=== PATIENT | male | born 1940 | race Caucasian/White ===

== ENCOUNTER 2017-03-05 17:40 | Inpatient (IN) | payer OTHER ==
[~2017-03-05] VITALS: Ht 193 cm; Wt 75.8 kg
[~2017-03-05 17:40] MED LIST: CARVEDILOL12.5 MG PO; CARVEDILOL25 MG PO; CARVEDILOL6.25 MG PO; COREG25 M1 PO; CRESTOR40 MG PO; ELIQUIS5 MG PO; FISH OIL300 MG PO; FUROSEMIDE40 MG PO; K-DUR10 MEQ PO; KLOR-CON 1010 ME1 PO; LIPITOR80 MG PO; LISINOPRIL10 MG PO; LISINOPRIL5 MG PO; LOW DOSE ASPIRI81 M1 PO; MAGNESIUM250 MG PO; MICROZIDE12.5 M1 PO; PRINIVIL5 MG PO; QUINAGLUTE324 MG PO; SPIRONOLACTONE25 MG PO; ZESTORETIC 20-1 EAC2 PO; ZESTORETIC,P1 TABLE2 PO
[2017-03-05 18:24] LABS: HEMATOCRIT 38.8 % (38.0-50.0); MCH 28.5 PG (29.0-34.0); MCHC 33.2 G/DL (30.0-36.0); MCV 85.8 FL (86-99); PLATELET COUNT 270 K/uL (156-360); RBC DIS.WIDTH-CV 14.5 % (11.8-14.6); RBC DIS.WIDTH-SD 45.9 % (39-53); RED BLOOD COUNT 4.52 M/uL (4.00-5.50); WHITE BLOOD COUNT 13.9 K/uL (4.1-10.2)
[2017-03-05 18:33] LABS: CHLORIDE 104 mEq/L (99-109); POTASSIUM 4.9 mEq/L (3.7-5.4); SODIUM 132 mEq/L (136-147)
[2017-03-05 18:34] LABS: GLUCOSE 178 mg/dL (70-99)
[2017-03-05 18:36] LABS: ANION GAP 14 MEQ/L (2-14)
[2017-03-05 18:38] LABS: GFR ESTIMATE (CALCULATED) 48 mL/min/
[2017-03-05 18:39] LABS: UREA NITROGEN (BUN) 31 mg/dL (9-23)
[2017-03-05 19:50] LABS: TOTAL BILIRUBIN 2.8 mg/dL (0.0-1.0)
[2017-03-05 19:51] LABS: ALKALINE PHOSPHATASE 64 IU/L (3-129)
[2017-03-05 19:55] LABS: LIPASE 14 U/L (1.0-51.0)
[2017-03-05 20:25] LABS: INTER. NORMALIZED RATIO 1.6; PROTHROMBIN TIME 16.1 (9.2-11.2); PTT 71.6 (25-32)
[2017-03-05] MEDS ORDERED: B-121000 MC2 PO (22:36)
[2017-03-06] VITALS (15 sets, daily range): BP systolic 80–140; BP diastolic 42–80
[2017-03-06 00:56] LABS: ADD MIUA? YES; BILIRUBIN NEGATIVE; BLOOD SMALL; COLOR AMBER ((YELLOW)); GLUCOSE (STRIP) NEGATIVE; KETONES NEGATIVE; LEUKOCYTES NEGATIVE; NITRITE NEGATIVE; PROTEIN (STRIP) 100; SPECIFIC GRAVITY 1.019 (1.000-1.030)
[2017-03-06 01:13] LABS: RED BLOOD CELLS 0-5 /HPF (0-5); WHITE BLOOD CELLS 0-5 /HPF (0-5)
[2017-03-06 01:20] LABS: EPITHELIAL CELLS 1+ /HPF; MUCUS RARE /LPF
[2017-03-06 01:21] LABS: AMORPHOUS PHOSPHATE CRYSTALS 2+; BACTERIA 2+ /HPF; CASTS PRESENT /LPF; CRYSTALS PRESENT; FINE GRANULAR CASTS 0-5 /LPF; HYALINE CASTS 0-5 /LPF; UCUL ADDED? NO
[2017-03-06 05:43] LABS: METH RESISTANT S AUREUS PCR NEGATIVE (NEGATIVE)
[2017-03-06 05:49] LABS: PROBE CHECK PASS; SPECIMEN PROCESSING CONTROL PASS
[2017-03-06 05:52] LABS: CHLORIDE 103 MEQ/L (99-109); GFR ESTIMATE (CALCULATED) 45 mL/min/; GLUCOSE 167 mg/dL (70-99); POTASSIUM 5.2 MEQ/L (3.7-5.4); SODIUM 132 MEQ/L (136-147); UREA NITROGEN (BUN) 35 mg/dL (9-23)
[2017-03-06 05:58] LABS: ANION GAP 15 MEQ/L (2-14); SAMPLE HEMOLYSIS CHECK 0; SAMPLE ICTERIC CHECK 1; SAMPLE LIPEMIA CHECK 0
[2017-03-06 08:51] LABS: INTERNAL CONTROL VALID? YES
[2017-03-06 12:47] LABS: BASE EXCESS -12.1 mEq/L (-3 to +3); BICARBONATE 11.3 mEq/L (22-26); CARBOXY HGB 2.2 % (0-5); COMMENTS - BLOOD GASES NAC+; DEVICE NC; METHEMOGLOBIN 1.6 % (0-1.5); O2 FLOW 2 L/MIN; PCO2 20 mm Hg (35-45); PO2 107 mm Hg (80-100); SITE RB; TOTAL RESP RATE 30 resp/min; pH 7.36 (7.35-7.45)
[2017-03-06 13:30] LABS: EOSINOPHIL (%) 0 % (0-5); HEMATOCRIT 36.6 % (38.0-50.0); IMMATURE GRANULOCYTE (%) 1.1 % (0.0-0.7); IMMATURE GRANULOCYTE COUNT 0.2 K/uL; INSTRUMENT ABS NEUTROPHIL CT 10.1 K/uL; LYMPHOCYTE COUNT 2.9 K/uL (1.0-2.8); MCH 28.3 PG (29.0-34.0); MCHC 31.4 G/DL (30.0-36.0); MEAN PLAT.VOLUME 10.5 uM^3 (9.0-12.4); MONOCYTE (%) 7.6 % (3-12); MONOCYTE COUNT 1.1 K/uL (0-0.8); NEUTROPHIL COUNT 10.1 K/uL (1.8-6.4); PLATELET COUNT 228 K/uL (156-360); RBC DIS.WIDTH-CV 14.8 % (11.8-14.6); RBC DIS.WIDTH-SD 48.8 % (39-53); RED BLOOD COUNT 4.07 M/uL (4.00-5.50); WHITE BLOOD COUNT 14.3 K/uL (4.1-10.2)
[2017-03-06 13:31] LABS: TROP-I INTERPRETATION INDETERMINATE; TROPONIN-I 0.45 ng/mL (0.0-0.30)
[2017-03-06 13:51] LABS: ANION GAP 16 MEQ/L (2-14); CHLORIDE 99 MEQ/L (99-109); GFR ESTIMATE (CALCULATED) 35 mL/min/; GLUCOSE 232 mg/dL (70-99); MAGNESIUM 2.3 mg/dl (1.3-2.7); SAMPLE HEMOLYSIS CHECK 0; SAMPLE ICTERIC CHECK 0; SAMPLE LIPEMIA CHECK 0; SODIUM 130 MEQ/L (136-147); UREA NITROGEN (BUN) 46 mg/dL (9-23)
[2017-03-06 13:53] LABS: POTASSIUM 6.1 MEQ/L (3.7-5.4)
[2017-03-06 14:24] LABS: MCV 89.9 FL (86-99)
[2017-03-06 18:27] LABS: CHLORIDE 106 mEq/L (99-109); POTASSIUM 5.2 mEq/L (3.7-5.4); SODIUM 133 mEq/L (136-147)
[2017-03-06 18:29] LABS: GLUCOSE 154 mg/dL (70-99)
[2017-03-06 18:31] LABS: ANION GAP 15 MEQ/L (2-14)
[2017-03-06 18:33] LABS: GFR ESTIMATE (CALCULATED) 35 mL/min/
[2017-03-06 18:34] LABS: UREA NITROGEN (BUN) 48 mg/dL (9-23)
[2017-03-06 18:40] LABS: TROP-I INTERPRETATION INDETERMINATE; TROPONIN-I 0.51 ng/mL (0.0-0.30)
[2017-03-06 23:17] LABS: MCH 28.4 PG (29.0-34.0); MCHC 31.5 G/DL (30.0-36.0); MCV 90.3 FL (86-99); MEAN PLAT.VOLUME 10.6 uM^3 (9.0-12.4); PLATELET COUNT 273 K/uL (156-360); RBC DIS.WIDTH-CV 14.8 % (11.8-14.6); RBC DIS.WIDTH-SD 48.9 % (39-53); RED BLOOD COUNT 4.54 M/uL (4.00-5.50); WHITE BLOOD COUNT 16.4 K/uL (4.1-10.2)
[2017-03-06 23:26] LABS: CHLORIDE 105 mEq/L (99-109); POTASSIUM 5.6 mEq/L (3.7-5.4); SODIUM 136 mEq/L (136-147)
[2017-03-06 23:28] LABS: GLUCOSE 140 mg/dL (70-99)
[2017-03-06 23:30] LABS: ANION GAP 19 MEQ/L (2-14)
[2017-03-06 23:32] LABS: GFR ESTIMATE (CALCULATED) 29 mL/min/
[2017-03-06 23:33] LABS: UREA NITROGEN (BUN) 53 mg/dL (9-23)
[2017-03-07] VITALS (7 sets, daily range): BP systolic 106–135; BP diastolic 66–83
[2017-03-07 00:32] LABS: BASE EXCESS -11.1 mEq/L (-3 to +3); BICARBONATE 12.1 mEq/L (22-26); CARBOXY HGB 2.1 % (0-5); COMMENTS - BLOOD GASES C+; DEVICE NC; METHEMOGLOBIN 1.7 % (0-1.5); O2 FLOW 2 L/MIN; PCO2 21 mm Hg (35-45); PO2 64 mm Hg (80-100); SITE LR; pH 7.37 (7.35-7.45)
[2017-03-07 07:12] LABS: EOSINOPHIL (%) 0 % (0-5); HEMATOCRIT 36.5 % (38.0-50.0); IMMATURE GRANULOCYTE (%) 0.9 % (0.0-0.7); IMMATURE GRANULOCYTE COUNT 0.1 K/uL; INSTRUMENT ABS NEUTROPHIL CT 11.6 K/uL; LYMPHOCYTE COUNT 1.9 K/uL (1.0-2.8); MCH 28.2 PG (29.0-34.0); MCHC 32.9 G/DL (30.0-36.0); MEAN PLAT.VOLUME 10.6 uM^3 (9.0-12.4); MONOCYTE (%) 4.1 % (3-12); MONOCYTE COUNT 0.6 K/uL (0-0.8); NEUTROPHIL (%) 81.8 % (45-76); NEUTROPHIL COUNT 11.6 K/uL (1.8-6.4); PLATELET COUNT 204 K/uL (156-360); RBC DIS.WIDTH-CV 14.6 % (11.8-14.6); RBC DIS.WIDTH-SD 46.1 % (39-53); RED BLOOD COUNT 4.25 M/uL (4.00-5.50); WHITE BLOOD COUNT 14.2 K/uL (4.1-10.2)
[2017-03-07 07:15] LABS: MCV 85.9 FL (86-99)
[2017-03-07 07:29] LABS: TROP-I INTERPRETATION INDETERMINATE; TROPONIN-I 0.56 ng/mL (0.0-0.30)
[2017-03-07 07:31] LABS: TROP-I INTERPRETATION INDETERMINATE
[2017-03-07 07:46] LABS: TROPONIN-I 0.56 ng/mL (0.0-0.30)
[2017-03-07 07:48] LABS: ANION GAP 14 MEQ/L (2-14); CHLORIDE 103 MEQ/L (99-109); GFR ESTIMATE (CALCULATED) 33 mL/min/; GLUCOSE 147 mg/dL (70-99); MAGNESIUM 2.2 mg/dl (1.3-2.7); POTASSIUM 4.8 MEQ/L (3.7-5.4); SAMPLE HEMOLYSIS CHECK 0; SAMPLE ICTERIC CHECK 0; SAMPLE LIPEMIA CHECK 0; SODIUM 133 MEQ/L (136-147); UREA NITROGEN (BUN) 61 mg/dL (9-23); URIC ACID 9.6 mg/dL (3.1-9.2)
[2017-03-07 12:43] LABS: ADD MIUA? YES; BILIRUBIN NEGATIVE; BLOOD MODERATE; COLOR YELLOW ((YELLOW)); GLUCOSE (STRIP) NEGATIVE; KETONES NEGATIVE; LEUKOCYTES NEGATIVE; NITRITE NEGATIVE; PROTEIN (STRIP) 30; UROBILINOGEN 0.2 MG/DL (0.2-1.0)
[2017-03-07 15:02] LABS: AMORPHOUS URATES CRYSTALS RARE; BACTERIA RARE /HPF; EPITHELIAL CELLS NONE SEEN /HPF; MUCUS NONE SEEN /LPF; RED BLOOD CELLS 0-5 /HPF (0-5); UCUL ADDED? NO; WHITE BLOOD CELLS 0-5 /HPF (0-5)
[2017-03-07 20:29] LABS: BASE EXCESS -14.9 mEq/L (-3 to +3); BICARBONATE 10.5 mEq/L (22-26); COMMENTS - BLOOD GASES C+A+; DEVICE VENTURI MASK; FI02 50 %; METHEMOGLOBIN 1.6 % (0-1.5); O2 FLOW 12 L/MIN; PCO2 24 mm Hg (35-45); PO2 71 mm Hg (80-100); SITE LR
[2017-03-07 20:30] LABS: pH 7.25 (7.35-7.45)
[2017-03-07 20:50] LABS: ANION GAP 18 MEQ/L (2-14); CHLORIDE 101 MEQ/L (99-109); GFR ESTIMATE (CALCULATED) 24 mL/min/; GLUCOSE 183 mg/dL (70-99); POTASSIUM 4.7 MEQ/L (3.7-5.4); SAMPLE HEMOLYSIS CHECK 0; SAMPLE ICTERIC CHECK 0; SAMPLE LIPEMIA CHECK 0; SODIUM 134 MEQ/L (136-147); UREA NITROGEN (BUN) 70 mg/dL (9-23)
[2017-03-07 22:06] LABS: METH RESISTANT S AUREUS PCR NEGATIVE (NEGATIVE)
[2017-03-07 22:07] LABS: PROBE CHECK PASS; SPECIMEN PROCESSING CONTROL PASS
[2017-03-07 22:20] LABS: EOSINOPHIL (%) 0 % (0-5); HEMATOCRIT 38.5 % (38.0-50.0); IMMATURE GRANULOCYTE (%) 1.2 % (0.0-0.7); IMMATURE GRANULOCYTE COUNT 0.2 K/uL; INSTRUMENT ABS NEUTROPHIL CT 12.3 K/uL; LYMPHOCYTE COUNT 1.8 K/uL (1.0-2.8); MCH 28.3 PG (29.0-34.0); MCHC 32.5 G/DL (30.0-36.0); MCV 87.3 FL (86-99); MONOCYTE (%) 5.2 % (3-12); MONOCYTE COUNT 0.8 K/uL (0-0.8); NEUTROPHIL (%) 81.4 % (45-76); NEUTROPHIL COUNT 12.3 K/uL (1.8-6.4); PLATELET COUNT 241 K/uL (156-360); RBC DIS.WIDTH-CV 14.6 % (11.8-14.6); RBC DIS.WIDTH-SD 47.4 % (39-53); RED BLOOD COUNT 4.41 M/uL (4.00-5.50); WHITE BLOOD COUNT 15.1 K/uL (4.1-10.2)
[2017-03-07 22:40] LABS: TROP-I INTERPRETATION POSITIVE; TROPONIN-I 0.65 ng/mL (0.0-0.30)
[2017-03-08] VITALS (25 sets, daily range): BP systolic 91–145; BP diastolic 44–87
[2017-03-08 05:44] LABS: EOSINOPHIL (%) 0 % (0-5); HEMATOCRIT 37.7 % (38.0-50.0); IMMATURE GRANULOCYTE (%) 0.9 % (0.0-0.7); IMMATURE GRANULOCYTE COUNT 0.2 K/uL; INSTRUMENT ABS NEUTROPHIL CT 13.4 K/uL; LYMPHOCYTE COUNT 2.6 K/uL (1.0-2.8); MCH 28.2 PG (29.0-34.0); MCHC 32.9 G/DL (30.0-36.0); MCV 85.7 FL (86-99); MEAN PLAT.VOLUME 11.1 uM^3 (9.0-12.4); MONOCYTE (%) 4.8 % (3-12); MONOCYTE COUNT 0.8 K/uL (0-0.8); NEUTROPHIL (%) 78.9 % (45-76); NEUTROPHIL COUNT 13.4 K/uL (1.8-6.4); PLATELET COUNT 224 K/uL (156-360); RBC DIS.WIDTH-CV 14.6 % (11.8-14.6); RBC DIS.WIDTH-SD 46.1 % (39-53)
[2017-03-08 05:54] LABS: TROP-I INTERPRETATION POSITIVE
[2017-03-08 06:05] LABS: ANION GAP 18 MEQ/L (2-14); CHLORIDE 104 MEQ/L (99-109); GFR ESTIMATE (CALCULATED) 21 mL/min/; GLUCOSE 150 mg/dL (70-99); POTASSIUM 4.4 MEQ/L (3.7-5.4); SAMPLE HEMOLYSIS CHECK 0; SAMPLE ICTERIC CHECK 0; SAMPLE LIPEMIA CHECK 0; SODIUM 137 MEQ/L (136-147); UREA NITROGEN (BUN) 78 mg/dL (9-23)
[2017-03-09] VITALS (13 sets, daily range): BP systolic 92–108; BP diastolic 46–61
[2017-03-09 06:05] LABS: EOSINOPHIL (%) 0 % (0-5); HEMATOCRIT 32.1 % (38.0-50.0); IMMATURE GRANULOCYTE (%) 1.2 % (0.0-0.7); IMMATURE GRANULOCYTE COUNT 0.2 K/uL; INSTRUMENT ABS NEUTROPHIL CT 11.1 K/uL; LYMPHOCYTE COUNT 2.2 K/uL (1.0-2.8); MCH 27.9 PG (29.0-34.0); MCHC 33.3 G/DL (30.0-36.0); MCV 83.8 FL (86-99); MEAN PLAT.VOLUME 11.1 uM^3 (9.0-12.4); MONOCYTE COUNT 0.4 K/uL (0-0.8); NEUTROPHIL (%) 80.1 % (45-76); NEUTROPHIL COUNT 11.1 K/uL (1.8-6.4); NRBC (%) 0.3 /100 WBC (0-0); PLATELET COUNT 236 K/uL (156-360); RBC DIS.WIDTH-CV 14.6 % (11.8-14.6); RBC DIS.WIDTH-SD 44.4 % (39-53); RED BLOOD COUNT 3.83 M/uL (4.00-5.50); WHITE BLOOD COUNT 13.9 K/uL (4.1-10.2)
[2017-03-09 07:26] LABS: ANION GAP 16 MEQ/L (2-14); CHLORIDE 101 MEQ/L (99-109); GLUCOSE 149 mg/dL (70-99); MAGNESIUM 2.4 mg/dl (1.3-2.7); SAMPLE HEMOLYSIS CHECK 0; SAMPLE ICTERIC CHECK 0; SAMPLE LIPEMIA CHECK 0; SODIUM 138 MEQ/L (136-147); UREA NITROGEN (BUN) 90 mg/dL (9-23)
[2017-03-09 07:27] LABS: GFR ESTIMATE (CALCULATED) 17 mL/min/; POTASSIUM 3.3 MEQ/L (3.7-5.4)
[2017-03-09 07:39] LABS: VANCOMYCIN, TROUGH 12.8 MCG/ML (10-20)
[2017-03-10] VITALS (11 sets, daily range): BP systolic 0–112; BP diastolic 0–72
[2017-03-10 07:20] LABS: ANION GAP 15 MEQ/L (2-14); CHLORIDE 99 MEQ/L (99-109); GFR ESTIMATE (CALCULATED) 19 mL/min/; GLUCOSE 164 mg/dL (70-99); POTASSIUM 3.2 MEQ/L (3.7-5.4); SAMPLE HEMOLYSIS CHECK 0; SAMPLE ICTERIC CHECK 0; SAMPLE LIPEMIA CHECK 0; SODIUM 136 MEQ/L (136-147); UREA NITROGEN (BUN) 93 mg/dL (9-23); URIC ACID 10.8 mg/dL (3.1-9.2)
[2017-03-10 15:52] LABS: POINT-OF-CARE METER ID UU13113803
[2017-03-10 21:54] LABS: POINT-OF-CARE METER ID UU13113803
[2017-03-11] VITALS (10 sets, daily range): BP systolic 99–117; BP diastolic 57–79
[2017-03-11 05:44] LABS: EOSINOPHIL (%) 0 % (0-5); HEMATOCRIT 34.5 % (38.0-50.0); IMMATURE GRANULOCYTE (%) 1.3 % (0.0-0.7); IMMATURE GRANULOCYTE COUNT 0.3 K/uL; INSTRUMENT ABS NEUTROPHIL CT 18.2 K/uL; MCH 28.5 PG (29.0-34.0); MCHC 33.6 G/DL (30.0-36.0); MCV 84.8 FL (86-99); MEAN PLAT.VOLUME 10.9 uM^3 (9.0-12.4); MONOCYTE (%) 3.7 % (3-12); MONOCYTE COUNT 0.8 K/uL (0-0.8); NEUTROPHIL (%) 81.3 % (45-76); NEUTROPHIL COUNT 18.2 K/uL (1.8-6.4); NRBC (%) 0.2 /100 WBC (0-0); RBC DIS.WIDTH-CV 14.6 % (11.8-14.6); RBC DIS.WIDTH-SD 44.8 % (39-53); RED BLOOD COUNT 4.07 M/uL (4.00-5.50)
[2017-03-11 05:45] LABS: PLATELET COUNT 320 K/uL (156-360); WHITE BLOOD COUNT 22.3 K/uL (4.1-10.2)
[2017-03-11 07:26] LABS: ANION GAP 18 MEQ/L (2-14); CHLORIDE 97 MEQ/L (99-109); GFR ESTIMATE (CALCULATED) 19 mL/min/; GLUCOSE 193 mg/dL (70-99); POTASSIUM 3.5 MEQ/L (3.7-5.4); SAMPLE HEMOLYSIS CHECK 0; SAMPLE ICTERIC CHECK 0; SAMPLE LIPEMIA CHECK 0; SODIUM 136 MEQ/L (136-147); UREA NITROGEN (BUN) 87 mg/dL (9-23)
[2017-03-11 12:53] LABS: POINT-OF-CARE METER ID UU14162636
[2017-03-12] VITALS (8 sets, daily range): BP systolic 92–116; BP diastolic 57–75
[2017-03-12 12:32] LABS: HEMATOCRIT 36.1 % (38.0-50.0); MCH 28.1 PG (29.0-34.0); MCHC 32.4 G/DL (30.0-36.0); MCV 86.6 FL (86-99); MEAN PLAT.VOLUME 11.1 uM^3 (9.0-12.4); PLATELET COUNT 313 K/uL (156-360); RBC DIS.WIDTH-SD 46.1 % (39-53); RED BLOOD COUNT 4.17 M/uL (4.00-5.50); WHITE BLOOD COUNT 23.1 K/uL (4.1-10.2)
[2017-03-12 13:05] LABS: ANION GAP 16 MEQ/L (2-14); CHLORIDE 99 MEQ/L (99-109); GFR ESTIMATE (CALCULATED) 19 mL/min/; GLUCOSE 167 mg/dL (70-99); POTASSIUM 3.8 MEQ/L (3.7-5.4); SAMPLE HEMOLYSIS CHECK 0; SAMPLE ICTERIC CHECK 0; SAMPLE LIPEMIA CHECK 0; SODIUM 141 MEQ/L (136-147)
[2017-03-12 13:21] LABS: UREA NITROGEN (BUN) 104 mg/dL (9-23)
[2017-03-12 18:21] LABS: POINT-OF-CARE METER ID UU13113731
[2017-03-12 21:02] LABS: POINT-OF-CARE METER ID UU13113731
[2017-03-13] VITALS: BP 117/90
[2017-03-13 04:00] VITALS: BP 96/66
[2017-03-13 06:40] LABS: ANION GAP 16 MEQ/L (2-14); CHLORIDE 101 MEQ/L (99-109); GFR ESTIMATE (CALCULATED) 19 mL/min/; GLUCOSE 171 mg/dL (70-99); SAMPLE HEMOLYSIS CHECK 0; SAMPLE ICTERIC CHECK 0; SAMPLE LIPEMIA CHECK 0; SODIUM 141 MEQ/L (136-147)
[2017-03-13 06:41] LABS: UREA NITROGEN (BUN) 109 mg/dL (9-23)
[2017-03-13 07:00] VITALS: BP 112/73
[2017-03-13 08:27] LABS: HEMATOCRIT 35.9 % (38.0-50.0); MCH 28.4 PG (29.0-34.0); MCHC 32.9 G/DL (30.0-36.0); MCV 86.5 FL (86-99); MEAN PLAT.VOLUME 11.3 uM^3 (9.0-12.4); NRBC (%) 0.1 /100 WBC (0-0); PLATELET COUNT 339 K/uL (156-360); RBC DIS.WIDTH-CV 15.1 % (11.8-14.6); RBC DIS.WIDTH-SD 46.5 % (39-53); RED BLOOD COUNT 4.15 M/uL (4.00-5.50); WHITE BLOOD COUNT 22.2 K/uL (4.1-10.2)
[2017-03-13 10:01] LABS: HBSG INDEX 0.23
[2017-03-13 10:02] LABS: AHBS INDEX 0.71; HEPATITIS B SURFACE ANTIBODY Nonreactive
[2017-03-13 11:48] LABS: POINT-OF-CARE METER ID UU14162636; POINT-OF-CARE USER ID 606021424
[2017-03-13 12:00] VITALS: BP 99/67
[2017-03-13 16:00] VITALS: BP 104/59
[2017-03-13 17:32] LABS: POINT-OF-CARE METER ID UU13113731
[2017-03-13 20:00] VITALS: BP 111/73
[2017-03-14] VITALS: BP 105/60
[2017-03-14 04:00] VITALS: BP 107/61
[2017-03-14 08:10] VITALS: BP 111/70
[2017-03-14 08:53] LABS: MCH 28.4 PG (29.0-34.0); MCHC 32.4 G/DL (30.0-36.0); MCV 87.5 FL (86-99); MEAN PLAT.VOLUME 11.1 uM^3 (9.0-12.4); PLATELET COUNT 366 K/uL (156-360); RBC DIS.WIDTH-CV 15.5 % (11.8-14.6); RED BLOOD COUNT 4.23 M/uL (4.00-5.50); WHITE BLOOD COUNT 28.2 K/uL (4.1-10.2)
[2017-03-14 09:41] LABS: ANION GAP 14 MEQ/L (2-14); CHLORIDE 107 MEQ/L (99-109); GFR ESTIMATE (CALCULATED) 19 mL/min/; GLUCOSE 166 mg/dL (70-99); POTASSIUM 3.9 MEQ/L (3.7-5.4); SAMPLE HEMOLYSIS CHECK 0; SAMPLE ICTERIC CHECK 0; SAMPLE LIPEMIA CHECK 0
[2017-03-14 09:47] LABS: SODIUM 149 MEQ/L (136-147); UREA NITROGEN (BUN) 125 mg/dL (9-23)
[2017-03-14 12:00] VITALS: BP 116/65
[2017-03-14 16:00] VITALS: BP 99/61
[2017-03-15 17:44] VITALS: BP 00/00
== END 2017-03-16 01:22 | DRG 871 ==
LOC: EME 17:40 → 4EAST 03-06 01:01 → 3EAST 03-06 01:01 → 4WEST 03-06 01:01 → EDOF 03-06 01:01 → 3EAST 03-06 02:32 → 4WEST 03-06 14:31 → 4EAST 03-06 20:56 → 4WEST 03-07 20:33 → 5EAST 03-14 16:37
PROVIDERS: Anesthesiology; Hospitalist; Internal Medicine; Internal Medicine Cardiovascular Disease; Internal Medicine Critical Care Medicine; Internal Medicine Nephrology; Internal Medicine Pulmonary Disease; Nurse Practitioner Family; Physician Assistant Medical
DX: A41.9 Sepsis, unspecified organism (principal); J18.9 Pneumonia, unspecified organism; R65.20 Severe sepsis without septic shock; J96.01 Acute respiratory failure with hypoxia; I95.9 Hypotension, unspecified; E86.0 Dehydration; I13.0 Hypertensive heart and chronic kidney disease with heart failure and stage 1 through stage 4 chronic kidney disease, or unspecified chronic kidney disease; N18.4 Chronic kidney disease, stage 4 (severe); I50.23 Acute on chronic systolic (congestive) heart failure; E78.5 Hyperlipidemia, unspecified; G93.41 Metabolic encephalopathy; Z66 Do not resuscitate; E87.2 Acidosis; E87.1 Hypo-osmolality and hyponatremia; I25.10 Atherosclerotic heart disease of native coronary artery without angina pectoris; Z95.5 Presence of coronary angioplasty implant and graft; I73.9 Peripheral vascular disease, unspecified; I48.92 Unspecified atrial flutter; Z79.01 Long term (current) use of anticoagulants; I48.0 Paroxysmal atrial fibrillation; I25.5 Ischemic cardiomyopathy; I34.0 Nonrheumatic mitral (valve) insufficiency; E87.5 Hyperkalemia; R74.8 Abnormal levels of other serum enzymes; F03.90 Unspecified dementia, unspecified severity, without behavioral disturbance, psychotic disturbance, mood disturbance, and anxiety; D64.9 Anemia, unspecified; Z51.5 Encounter for palliative care; I44.0 Atrioventricular block, first degree; I27.2 Other secondary pulmonary hypertension; Z87.891 Personal history of nicotine dependence; N17.0 Acute kidney failure with tubular necrosis; E55.9 Vitamin D deficiency, unspecified; E87.6 Hypokalemia
CPT/HCPCS: 36600; 70450; 71010; 80048; 80048 91; 80069; 80076; 80202; 81003; 82306; 82436; 82570; 82803; 82948; 83605; 83690; 83735; 83880; 84100; 84133; 84300; 84484; 84550; 85025; 85025 91; 85027; 85610; 85730; 86706; 87040; 87070; 87205; 87340; 87449; 87641; 93005; 94002; 94003; 94640; 94640 76; 94760; 94799; 97530 GO; 97530 GP; 99202; 99281; 99285; J0456; J0610; J0696; J1815; J1940; J2060; J2270; J2543; J2920; J2930; J3370; J3480; J7030; J7050